=== PATIENT | female | born 1990 | race Caucasian/White ===

== ENCOUNTER 2024-06-09 16:30 | Day surgery (SDC) | payer OTHER, SELFPAY ==
[2024-06-09] VITALS (29 sets, daily range): BP systolic 90–139; BP diastolic 49–88; PULSE 62–105; RESP 12–18; TEMP 36.1–37.1; O2SAT 95–100; BMI 31.2
--- NOTE | 2024-06-09 17:25 | CRLHL7_ITS ---
For Patients: As a result of the Century Cures Act, medical imaging exams and procedure reports are released immediately into your electronic medical record. You may view this report before your referring provider. If you have questions, please contact your health care provider. INDICATION: Six weeks , hypotension, cramping/spotting. TECHNIQUE: Ultrasound pelvis transvaginal for better assessment or to better visualize the endometrium. Real-time sonographic images with spectral and color Doppler imaging of the ovaries were obtained. COMPARISON: None. FINDINGS: Thickened endometrial stripe measuring 1.7 cm. No injury uterine fluid collection visualized. Increased vascularity within the endometrium without focal mass visualized. Small submucosal fibroid measuring 7 mm within the anterior mid uterine wall. There is a 1.1 cm myometrial fibroid within the right fundal uterus. Normal ovaries with arterial and venous blood flow bilaterally. There is a large heterogeneous lesion separate from the right ovary within the right adnexa measuring 8.7 x 3.5 x 6.2 cm. There is a large amount of free fluid within the pelvis, particularly in the right adnexa. IMPRESSION: 1. No intrauterine gestation identified. 2. Large, 8.7 x 3.5 x 6.2 cm heterogeneous lesion separate from the right ovary within the right adnexa with a large amount of surrounding free fluid in the pelvis. In the setting of a positive beta HCG, this should be considered an ectopic until proven otherwise. Given the degree of free fluid, this is concerning for a ruptured ectopic . Dictated by Sylvester Calderon MD @ 06/09/2024 7:05:15 PM (Electronically Signed)
--- NOTE | 2024-06-09 17:44 | ED_ITS ---
HPI - General Adult General Date Seen: 06/09/24 Chief complaint: Hypotension Stated complaint: 6 weeks preg, almost passed out twice Time Seen by Provider: 06/09/24 17:17 Source: patient Mode of arrival: ambulatory Limitations: no limitations History of Present Illness HPI narrative: Patient is a 34-year-old female presenting to the emergency department for lightheadedness and near-syncope. She is 6 weeks . This is her 1st . She states this morning she started having lower abdominal/pelvic pain his she states is relatively mild. Then today around 15:00 she came in to have an hCG level checked but she was feeling very lightheaded and was told to come to the emergency department. She states since then she has had a total 3 episodes where she felt like she is brought to past so. States when this occurs her vision becomes very fuzzy and then she would feel back to normal shortly after. She states she has been eating plenty but thinks she could possibly be dehydrated. This is never happened to her before. Has not had any vaginal bleeding other than a small amount of spotting 2 days ago. Denies fevers, chills, chest pain, shortness of breath, weakness, numbness, dysuria, diarrhea, constipation, vaginal discharge. Has not had an ultrasound performed yet. States she does not feel lightheaded at all right now. Related Data Home Medications ?Medication ?Instructions ?Recorded ?Confirmed No Known Home Medications 06/09/24 06/09/24 Allergies Allergy/AdvReac Type Severity Reaction Status Date / Time cefaclor (From Ceclor) Allergy Mild Unknown Verified 06/09/24 16:49 phenytoin (From Dilantin) Allergy Mild Rash Verified 06/09/24 16:49 Review of Systems Status of ROS: Reports: 10 or more systems reviewed and unremarkable except as noted in History and below PFSH PFSH Family History (Updated 06/09/24 @ 18:50 by Emily Kc MD) Other Breast cancer Myocardial infarction Seizure disorder Stroke Social History Smoking Status: Never smoker Do you use any of these nicotine containing products: None How often do you have a drink containing alcohol: never How often do you have six or more drinks on one occasion: Never AUDIT-C Alcohol total score: 0 Non-prescribed substance use: denies use Exam Narrative: Exam Narrative: Const: Well-nourished, Well-developed, in mild distress Eyes: PERRL, no conjunctival injection, and symmetrical lids HENT: Atraumatic external nose and ears. Moist mucous membranes. Neck: Symmetric, trachea midline, No thyromegaly. CVS: RRR, No murmurs or gallops. Peripheral pulses 2+ and equal in all extremities RESP: Unlabored respiratory effort. Clear to auscultation bilaterally. GI: Mild bilateral lower abdominal tenderness. Mild pelvic tenderness. Nondistended, No rebound or guarding. MSK:Extremities w/o deformity, Normal Active ROM Skin: Warm, Dry. No rashes or lesions. Neuro: Normal Muscle tone, No focal neurological deficits. Psych: Awake, Alert, & Oriented x3. Appropriate mood and affect. Const: Vital Signs, click to edit/add: Vital Signs - 24 hr 06/09/24 16:49 06/09/24 17:04 06/09/24 17:13 Temperature 97.0 F L Pulse Rate 69 66 Pulse Rate [Pulse Oximeter] 62 Respiratory Rate 16 Blood Pressure 95/58 L Blood Pressure [Ri ght Upper Arm] 90/49 L Pulse Oximetry 96 99 99 Oxygen Delivery Me thod Room Air 06/09/24 17:15 06/09/24 17:22 06/09/24 18:08 Temperature Pulse Rate 71 75 78 Pulse Rate [Pulse Oximeter] Respiratory Rate Blood Pressure 90/50 L 112/61 Blood Pressure [Ri ght Upper Arm] Pulse Oximetry 98 99 99 Oxygen Delivery Me thod 06/09/24 18:09 06/09/24 18:12 06/09/24 18:15 Temperature Pulse Rate 75 78 79 Pulse Rate [Pulse Oximeter] Respiratory Rate Blood Pressure 93/58 L Blood Pressure [Ri ght Upper Arm] Pulse Oximetry 99 99 95 Oxygen Delivery Me thod 06/09/24 18:22 06/09/24 18:30 06/09/24 18:32 Temperature Pulse Rate 81 93 94 Pulse Rate [Pulse Oximeter] Respiratory Rate Blood Pressure 107/67 109/64 Blood Pressure [Ri ght Upper Arm] Pulse Oximetry 100 100 100 Oxygen Delivery Me thod 06/09/24 18:42 06/09/24 18:45 Temperature Pulse Rate 85 87 Pulse Rate [Pulse Oximeter] Respiratory Rate Blood Pressure 116/71 Blood Pressure [Ri ght Upper Arm] Pulse Oximetry 100 100 Oxygen Delivery Me thod Course Vital Signs Vital signs: Initial Vital Signs Temperature 97.0 F L 06/09/24 16:49 Temperature Source Temporal Artery Scan 06/09/24 16:49 Pulse Rate 62 06/09/24 16:49 Pulse Rhythm Regular 06/09/24 16:49 Respiratory Rate 16 06/09/24 16:49 Blood Pressure 90/49 L 06/09/24 16:49 Blood Pressure Mean 62 L 06/09/24 16:49 Blood Pressure Position Sitting 06/09/24 16:49 Pulse Oximetry 96 06/09/24 16:49 Oxygen Delivery Method Room Air 06/09/24 16:49 Vital Signs Temperature 97.0 F L 06/09/24 16:49 Pulse Rate 62 06/09/24 16:49 Respiratory Rate 16 06/09/24 16:49 Blood Pressure 90/49 L 06/09/24 16:49 Pulse Oximetry 96 06/09/24 16:49 Oxygen Delivery Method Room Air 06/09/24 16:49 Temperature 97.0 F L 06/09/24 16:49 Pulse Rate 87 06/09/24 18:45 Respiratory Rate 16 06/09/24 16:49 Blood Pressure 116/71 06/09/24 18:42 Pulse Oximetry 100 06/09/24 18:45 Oxygen Delivery Method Room Air 06/09/24 16:49 Medications Administered Medications: Discontinued Medications Generic Name Dose Route Start Last Admin Trade Name Freq PRN Reason Stop Dose Admin Sodium Chloride 1,000 mls @ 1,000 mls/hr 06/09/24 17:30 06/09/24 18:08 0.9 % Sodium Chloride 1000 Ml IV 06/09/24 18:29 1,000 mls/hr .Q1H MYAH Administration Medical Decision Making MDM Narrative Medical decision making narrative: Patient is a 34-year-old female presenting to the emergency department for lightheadedness. She was hypertensive in triage with a blood pressure of 90/49. An IV was placed. Will give her L of fluids for possible dehydration. She she does have some mild abdominal discomfort while she is not having any vaginal bleeding there is some concern this could be related to an ectopic . Will do an ultrasound for better evaluation. Will also check orthostatic blood pressures along with an EKG, troponin, hCG quantitative, magnesium, CBC, BMP, viral swabs, urinalysis. Primary read by the gyroscope technician is concerning for a ruptured ectopic . I informed, Dr. Kc of the preliminary read and she came down immediately to evaluate the patient. After evaluation she did have them call in the OR team for likely procedure. She was pending the hCG quantitative in the official ultrasound read. The patient's blood pressure was improving most recent was 116/71. Her heart rate is still within normal limits but has increased slightly from 62 to 87. The white count came back at 17.19 and hemoglobin at 12.2. BMP and troponin showed no concerning findings. Viral swabs are negative. HCG quantitative is 7218 and the ultrasound read shows a likely ruptured ectopic . Patient will go to the OR. Lab Data Labs: Lab Results 06/09/24 06/09/24 06/09/24 Range/Units 17:00 17:00 17:00 WBC 17.19 H (4.50-11.00) K/uL RBC 4.24 (4.00-5.20) m/uL Hgb 12.2 (12.0-16.0) gm/dL Hct 36.3 (33.0-51.0) % MCV 86 (80-100) fL MCH 29 (26-34) pg MCHC 34 (32-36) gm/dL RDW Coeff of Randal 12.2 (11.5-15.5) % Plt Count 305 (140-440) K/uL Neut % (Auto) 81.3 H (42.0-72.0) % Lymph % (Auto) 12.6 L (20-44) % [place] % (Auto) 5.2 (0.0-11.0) % Eos % (Auto) 0.5 (0.0-7.0) % Baso % (Auto) 0.2 (0.0-3.0) % Neut # (Auto) 14.00 H (1.7-7.0) K/uL Lymph # (Auto) 2.20 (0.90-2.90) K/uL [place] # (Auto) 0.90 (0.00-0.90) K/UL Eos # (Auto) 0.10 (0.00-0.50) K/uL Baso # (Auto) 0.00 (0.00-0.30) K/uL Abs Immat Gran (auto) 0.00 (0.00-0.30) K/uL Imm/Tot Granulo (auto) 0.2 % Sodium 134 L (135-149) mmol/L Potassium 3.7 (3.6-5.1) mmol/L Chloride 104 (96-114) mmol/L Carbon Dioxide 22 (20-32) mmol/L Anion Gap 8 (7-15) mEq/L BUN 15 (5-24) mg/dL Creatinine 0.8 (0.5-1.5) mg/dL Estimated Creat Clear 81.97 Estimated GFR 99 ml/min Glucose 145 H (60-115) mg/dL Calcium 9.2 (8.4-10.6) mg/dL Magnesium 2.1 Cancelled (1.5-2.6) mg/dL Troponin I < 0.01 L Cancelled (0.01-0.04) ng/mL HCG, Quant 7218.50 mIU/mL SARS-CoV-2 (PCR) (Negative) Influenza Type A (PCR) (Negative) Influenza Type B (PCR) (Negative) RSV (PCR) (Negative) 06/09/24 Range/Units 18:10 WBC (4.50-11.00) K/uL RBC (4.00-5.20) m/uL Hgb (12.0-16.0) gm/dL Hct (33.0-51.0) % MCV (80-100) fL MCH (26-34) pg MCHC (32-36) gm/dL RDW Coeff of Randal (11.5-15.5) % Plt Count (140-440) K/uL Neut % (Auto) (42.0-72.0) % Lymph % (Auto) (20-44) % [place] % (Auto) (0.0-11.0) % Eos % (Auto) (0.0-7.0) % Baso % (Auto) (0.0-3.0) % Neut # (Auto) (1.7-7.0) K/uL Lymph # (Auto) (0.90-2.90) K/uL [place] # (Auto) (0.00-0.90) K/UL Eos # (Auto) (0.00-0.50) K/uL Baso # (Auto) (0.00-0.30) K/uL Abs Immat Gran (auto) (0.00-0.30) K/uL Imm/Tot Granulo (auto) % Sodium (135-149) mmol/L Potassium (3.6-5.1) mmol/L Chloride (96-114) mmol/L Carbon Dioxide (20-32) mmol/L Anion Gap (7-15) mEq/L BUN (5-24) mg/dL Creatinine (0.5-1.5) mg/dL Estimated Creat Clear Estimated GFR ml/min Glucose (60-115) mg/dL Calcium (8.4-10.6) mg/dL Magnesium (1.5-2.6) mg/dL Troponin I (0.01-0.04) ng/mL HCG, Quant mIU/mL SARS-CoV-2 (PCR) Negative SARS-CoV-2 (Negative) Influenza Type A (PCR) Negative PCR FLU A (Negative) Influenza Type B (PCR) Negative PCR FLU B (Negative) RSV (PCR) Negative PCR RSV (Negative) Imaging Data Pelvic ultrasound: Radiologist's impression: 1. No intrauterine gestation identified. 2. Large, 8.7 x 3.5 x 6.2 cm heterogeneous lesion separate from the right ovary within the right adnexa with a large amount of surrounding free fluid in the pelvis. In the setting of a positive beta HCG, this should be considered an ectopic until proven otherwise. Given the degree of free fluid, this is concerning for a ruptured ectopic . Dictated by Sylvester Calderon MD @ 06/09/2024 7:05:15 PM Critical Care Time Critical Care Time Critical Care Time: Yes Attestation: The patient required my highest level preparedness to intervene emergently and I personally spent this critical care time directly and personally managing the patient. This critical care time included: Obtaining a history; Examining the patient; Pulse oximetry; Ordering and reviewing of studies; Arranging urgent treatment with development of a management plan; Evaluation of patients response to treatment; Frequent reassessment discussions with other providers. This critical care time was performed to assess and manage the high probability of imminent life-threatening deterioration that could result in multiorgan failure. It was exclusive of separate billable procedures and treating other patients and teaching time. Total Critical Care Time in Minutes: 35 Discharge Plan Discharge Clinical Impression: Ectopic Qualifiers: Location of ectopic : unspecified location Intrauterine status: unspecified Qualified Code(s): O00.90 - Unspecified ectopic without intrauterine Patient Disposition: XFER to OR Condition: Critical
[2024-06-09 18:02] LABS: Basophils Percent Auto 0.2 % (0.0-3.0); Eosinophils Percent Auto 0.5 % (0.0-7.0); Hematocrit 36.3 % (33.0-51.0); Hemoglobin* 12.2 gm/dL (12.0-16.0); Immature Granulocytes Pct Auto 0.2 %; Lymphocytes Percent Auto 12.6 % (20-44); Mean Corpuscular HGB Conc 34 gm/dL (32-36); Mean Corpuscular Hemoglobin 29 pg (26-34); Mean Corpuscular Volume 86 fL (80-100); Monocytes Percent Auto 5.2 % (0.0-11.0); Neutrophils Percent Auto 81.3 % (42.0-72.0); Platelet Count* 305 K/uL (140-440); RDW Coefficient of Variation % 12.2 % (11.5-15.5); Red Blood Count 4.24 m/uL (4.00-5.20); White Blood Count* 17.19 K/uL (4.50-11.00)
[2024-06-09] MEDS: 0.9 % SODIUM CHLORIDE 1000 ml 1,000 ML IV (18:08)
[2024-06-09 18:10] LABS: Chloride* 104 mmol/L (96-114); Potassium* 3.7 mmol/L (3.6-5.1); Sodium* 134 mmol/L (135-149)
[2024-06-09 18:12] LABS: Creatinine* 0.8 mg/dL (0.5-1.5); Est. Creatinine Clearance* 81.97; Estimated Glomerular Filt Rate 99 ml/min
[2024-06-09 18:13] LABS: Anion Gap 8 mEq/L (7-15); Blood Urea Nitrogen* 15 mg/dL (5-24); Calcium* 9.2 mg/dL (8.4-10.6); Carbon Dioxide* 22 mmol/L (20-32); Glucose* 145 mg/dL (60-115)
[2024-06-09 18:14] LABS: Magnesium* 2.1 mg/dL (1.5-2.6)
[2024-06-09 18:15] LABS: Slide Review Reflex No
[2024-06-09 18:25] LABS: Troponin I* < 0.01 ng/mL (0.01-0.04)
--- NOTE | 2024-06-09 18:48 | PM.GYNCN1 ---
PARI MUTUEL CLERK - CN: HPI Data of Consult Date Seen: 06/09/24 Patient: [facility] Patient Consult date: 06/09/24 Requesting Physician: Franck Owusu MD Primary Care Provider: Not a Local Provider Consult Narrative Narrative: Claudia Lorenzo is a 34 year old female at approximately 6 weeks gestation in her 1st by LMP. She reports developing menstrual like cramping this morning, followed by pelvic pressure. Symptoms were worse with movement. This afternoon, she began feeling dizzy, and has since had 5-6 near syncopal episodes. She has had 1 episode of light pink spotting on . Obstetric and gynecologic history: . Menses were fairly regular until January, when she had COVID, and they have been infrequent and irregular sent. She has no history of infertility. History of L ARAM Pap followed by colposcopy in 2011. No abnormalities since. No history of STI. Previously used condoms for contraception. Past medical, surgical, family, and social history are reviewed and updated in EHR cc:: CC: Review of Systems Status of ROS: Reports: 6 or more systems reviewed and unremarkable except as noted in History and below PFSH PFSH Family History (Updated 06/09/24 @ 18:50 by Emily Kc MD) Other Breast cancer Myocardial infarction Seizure disorder Stroke Social History Smoking Status: Never smoker Do you use any of these nicotine containing products: None How often do you have a drink containing alcohol: never How often do you have six or more drinks on one occasion: Never AUDIT-C Alcohol total score: 0 Non-prescribed substance use: denies use Meds Home Medications and Allergies Home Medications ?Medication ?Instructions ?Recorded ?Confirmed ?Type No Known Home Medications 06/09/24 06/09/24 History Allergies Allergy/AdvReac Type Severity Reaction Status Date / Time cefaclor (From Ceclor) Allergy Mild Unknown Verified 06/09/24 16:49 phenytoin (From Dilantin) Allergy Mild Rash Verified 06/09/24 16:49 PARI MUTUEL CLERK - Exam Physical Exam: Vital signs: Temp Pulse Resp BP Pulse Ox O2 Del Method 97.0 F L 87 16 116/71 100 Room Air 06/09/24 16:49 06/09/24 18:45 06/09/24 16:49 06/09/24 18:42 06/09/24 18:45 06/09/24 16:49 Narrative: Physical exam: General: No acute distress Psych: Alert and oriented x3, full affect HEENT: Normocephalic, atraumatic Heart: Regular rate and rhythm, no murmur rub or gallop Lungs: Clear to auscultation bilaterally Abdomen: Normoactive bowel sounds, soft, moderate tenderness to palpation in the left lower quadrant and central pelvis, no rebound, or guarding, no masses, no hepatosplenomegaly, no hernias Pelvic exam: Deferred to OR PARI MUTUEL CLERK - Results Labs Labs: Short CBC Quantitative hCG 7218.5 06/09/24 Range/Units 17:00 WBC 17.19 H (4.50-11.00) K/uL Hgb 12.2 (12.0-16.0) gm/dL Hct 36.3 (33.0-51.0) % Plt Count 305 (140-440) K/uL BMP 06/09/24 17:00 Sodium 134 L Potassium 3.7 Chloride 104 Carbon Dioxide 22 BUN 15 Creatinine 0.8 Glucose 145 H Calcium 9.2 Cardiac Enzymes 06/09/24 06/09/24 Range/Units 17:00 17:00 Troponin I < 0.01 L Cancelled (0.01-0.04) ng/mL Imaging pelvic US: Attestation: I have reviewed the pertinent imaging results. My impression: Thickened endometrial stripe. Anteverted uterus. Right ovary noted with adjacent roughly tubular mass with echogenic material within. Moderate free fluid. Radiologist's impression: Thickened endometrial stripe measuring 1.7 cm. No injury uterine fluid collection visualized. Increased vascularity within the endometrium without focal mass visualized. Small submucosal fibroid measuring 7 mm within the anterior mid uterine wall. There is a 1.1 cm myometrial fibroid within the right fundal uterus. Normal ovaries with arterial and venous blood flow bilaterally. There is a large heterogeneous lesion separate from the right ovary within the right adnexa measuring 8.7 x 3.5 x 6.2 cm. There is a large amount of free fluid within the pelvis, particularly in the right adnexa. IMPRESSION: 1. No intrauterine gestation identified. 2. Large, 8.7 x 3.5 x 6.2 cm heterogeneous lesion separate from the right ovary within the right adnexa with a large amount of surrounding free fluid in the pelvis. In the setting of a positive beta HCG, this should be considered an ectopic until proven otherwise. Given the degree of free fluid, this is concerning for a ruptured ectopic . Assessment and Plan Assessment and plan (1) Ectopic : Status: Acute Plan Suspect ruptured ectopic . This is certainly nonviable given quant HCG and lack of visible in uterus. I recommended laparoscopy with probable salpingectomy. We discussed risks of this surgery, including bleeding/hemorrhage, infection, damage to internal organs, and the impact on fertility of tubal removal. We discussed monitoring for ectopic in any future pregnancies. Consent form was reviewed with and signed by patient.
[2024-06-09 19:01] LABS: PCR FLU A Negative PCR FLU A (Negative); PCR FLU B Negative PCR FLU B (Negative); PCR RSV Negative PCR RSV (Negative); SARS PCR* Negative SARS-CoV-2 (Negative)
[2024-06-09] MEDS: LACTATED RINGERS 1000 ML 1,000 ML 100 ML IV (19:30)
--- NOTE | 2024-06-09 20:30 | W.ANESCHARGE ---
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
--- NOTE | 2024-06-09 20:59 | W.PM.GYNPROC ---
Procedure Note Date of procedure: 06/09/24 Will [facility] bill your pro fee for this procedure?: Yes Pre-op diagnosis: Suspected ruptured ectopic Post-op diagnosis: Ruptured left tubal Procedure: Laparoscopic left salpingectomy Anesthesia: GETA Complications: None Surgeon: Emily Kc MD Business Administration Professor: Meme Acosta Estimated blood loss (mL): 350 IV fluids (mL): 600 Urine Output (mL): 300 Pathology: specimen obtained, sent to pathology (1. Left Fallopian tube. 1. Intraperitoneal contents) Condition: stable Disposition: PACU Findings: 1. Upon pelvic exam under anesthesia, the cervix and vagina were normal in appearance. Uterus was mobile and anteverted, of normal size and texture. 2. Upon laparoscopy, survey of the upper abdomen revealed approximately 50 mL of blood anterior to the right lobe of the liver. Otherwise, there was a normal appearance to the inferior edge of the liver and stomach. Bowels were grossly normal appearance, as was the appendix. There was 350 mL of intraperitoneal blood, so which was clotted. Survey of the pelvis revealed uterus to have a small, approximately 1 cm, subserosal fibroid on the anterior fundus. Otherwise, uterus was normal in appearance. The left fallopian tube exhibited a rupture in its proximal portion that was bleeding freely and showed apparent chorionic villi around the rupture site. The distal aspect of the tube was normal in appearance. The right fallopian tube and bilateral ovaries were normal in appearance. The cul-de-sac and bladder reflection were normal in appearance. There was slight filmy scarring of the sigmoid colon to the left abdominal pelvic sidewall. Procedure Description: Patient was taken to the operating room with IV running. She was positioned in dorsal lithotomy position with her legs fully supported in Yellofin stirrups. General anesthesia was administered. She was prepped and draped in the usual sterile fashion. Bimanual exam was performed for the above-noted findings. Speculum was inserted. A single-toothed uterine manipulator was inserted through the cervix into the lower uterine segment, and affixed to the anterior cervical lip. Speculum was removed. Garcia catheter was placed. Patient's legs were placed in neutral position. Attention was turned to patient's abdomen. The infraumbilical area was infiltrated with small amount of Marcaine. An infraumbilical incision was made with a scalpel and carried through to the underlying layer of fascia with a hemostat. The 5 mm Fios Kii trocar was assembled with laparoscope within, and insufflator attached. While tenting up the abdomen manually, the trocar was passed through the anterior abdominal wall into the peritoneal cavity. Trocar was removed. Pneumoperitoneum was achieved. Survey of abdomen and pelvis revealed the above-noted findings. Two additional port sites were created. The first was in the patient's left lower quadrant, just superior medial to the left ASIS. The second was a hand's breath superior to and slightly medial to the first. Each was infiltrated with small amount of Marcaine prior to incision. An 11 mm incision was made at the left lower quadrant port site, and 5 mm incision at the 2nd port site. An 11 mm Fios Kii port was inserted in the left lower quadrant, and a 5 mm at the other site, each of these under direct visualization and without complication. The balloon on each of the 3 ports was inflated, holding each in place. Patient was placed in Trendelenburg position. Suction tire mounter was used to clear the abdomen and pelvis of the majority of clot. There was some filmy material within the clot that was consistent in appearance with products of conception; this was sent to pathology for further analysis. The left tube was elevated away from the ovary and pelvic sidewall, and the distal blood supply was divided with the Thunderbeat device. Dissection was carried laterally to medially through the mesosalpinx, crossing underneath the ruptured portion of the tube, and the tube was then amputated proximal to the rupture at the cornua. The tube was sent to pathology for further analysis. Hemostasis of this site was noted. Patient was placed back in neutral position. The left lower quadrant port was removed. The fascia of the port site was closed with 2 interrupted sutures of 0 Vicryl, one with the help of a Jose M-Mayda device. The balloon tips of the remaining ports were deflated. All instruments were removed. Pneumoperitoneum was released and the ports were removed. The skin of each port site was closed with a subcuticular stitch of 4-0 Monocryl. Surgical glue was applied above this. The uterine manipulator was removed, and the patient's vagina was cleaned of all blood with a sponge stick. Garcia catheter was removed. Postoperative debrief was verbalized with OR staff, including a verification of pathology specimens to be sent as described above. Patient tolerated procedure well and was taken to recovery area in stable condition.
[2024-06-09] MEDS: MEPERIDINE 25 MG/ML INJ 12.5 MG IVP ×2 (21:00→21:10)
[2024-06-09] MEDS: PROMETHAZINE 25 MG/ML INJ 12.5 MG IVP (22:32)
[2024-06-09] MEDS: OXYCODONE 5 MG TABLET PO (22:38)
--- NOTE | 2024-06-10 00:30 | PC.NURSE ---
Pt alert oriented and vitally stable, arrived to the floor at 2133. Pt had complaints of mild nausea, prn promethazine given, pt stated improvement. Pt stated pain starting in abdomen, radiating up to right shoulder, sharp and spastic, 10/10 when occurs. Prn oxy given, pt stated improvement. at bedside. 4 tablets of oxy sent to instamed in ED, pt is to orange picker before leaving, this is to bridge until pharmacy is open. ?DC education given, topics including medications, follow up and symptoms worsening. Pt DC home with at 0002.?
== END 2024-06-10 00:07 | disposition home or self-care (01) ==
LOC: ED 18:38 → OR 18:52 → MEDSURG 21:47
PROVIDERS: Obstetrics & Gynecology; Emergency Provider Student in an Organized Health Care Education/Training Program; Visit Provider Surgery
PROC: (CPT 59150; principal; 2024-06-09 19:15)
DX: O00.102 Left tubal pregnancy without intrauterine pregnancy (principal); I95.9 Hypotension, unspecified; R42 Dizziness and giddiness
CPT/HCPCS: 59151; 00840; 36415; 76817; 80048; 81001; 83735; 84484; 84702; 85025; 87631; 88305; 93976; 99140; 99285; 99291; A9270; J0330; J1100; J1630; J1885; J2175; J2250; J2405; J2550; J2704; J3490; J7030; J7120

== ENCOUNTER 2024-06-21 09:05 | Outpatient (CLI) | payer OTHER, SELFPAY | END 2024-06-21 09:06 | disposition home or self-care (01) | PROVIDERS: Visit Provider Obstetrics & Gynecology | DX: O00.90 Unspecified ectopic pregnancy without intrauterine pregnancy (principal); O26.899 Other specified pregnancy related conditions, unspecified trimester; Z67.91 Unspecified blood type, Rh negative | CPT/HCPCS: 86850; 86900; 86901; J2791 ==

== ENCOUNTER 2024-07-13 11:05 | Outpatient (CLI) | payer OTHER, SELFPAY | END 2024-07-13 11:06 | disposition home or self-care (01) | LOC: NFLDREF 07-17 03:34 | PROVIDERS: Visit Provider Obstetrics & Gynecology | DX: O00.90 Unspecified ectopic pregnancy without intrauterine pregnancy (principal) | CPT/HCPCS: 84702 ==

== ENCOUNTER 2024-07-20 14:10 | Outpatient (CLI) | payer OTHER, SELFPAY | END 2024-07-20 14:11 | disposition home or self-care (01) | LOC: NFLDREF 07-26 01:14 | PROVIDERS: Visit Provider Obstetrics & Gynecology | DX: O00.90 Unspecified ectopic pregnancy without intrauterine pregnancy (principal) | CPT/HCPCS: 84702 ==